=== PATIENT | female | born 1955 | race Caucasian/White ===

== ENCOUNTER 2021-10-02 11:57 | Observation (INO) ==
[2021-10-02 13:13] LABS: Hematocrit 16.9 % (35.3-44.9); Mean Corpuscular HGB Conc 30.2 g/dL (31.6-35.5); Nucleated Red Blood Cells 0.9 /100 WBC (0)
[2021-10-02 13:14] LABS: Mean Corpuscular Hemoglobin 25.2 pg (28.0-33.3); Mean Corpuscular Volume 83.7 fL (83.0-100.0); Mean Platelet Volume 10.4 fL (9.4-12.4); Platelet Count 449 K/mcL (140-400); Red Blood Count 2.02 M/mcL (3.82-4.97); Red Cell Distribution Width 21.8 % (11.5-14.5); White Blood Count 6.4 K/mcL (4.3-11.1)
[2021-10-02 13:20] LABS: INR 1.2; Prothrombin Time 13.8 Seconds (9.4-12.1)
[2021-10-02 13:32] LABS: Hemoglobin 5.1 g/dL (11.5-15.4)
[2021-10-02 13:39] LABS: BUN/Creatinine Ratio 15 (6-26); Blood Urea Nitrogen 15 mg/dL (8-23); Calcium 8.9 mg/dL (8.6-10.3); Carbon Dioxide 24 mEq/L (23-29); Chloride 105 mEq/L (98-107); Glucose 85 mg/dL (70-105); Osmolality,Calculated 282 (280-300); Potassium 3.8 mEq/L (3.5-5.1); Sodium 136 mEq/L (136-145); Troponin I 0.04 ng/mL (< 0.04); eGFR For African Americans > 60 (> 60); eGFR For Non-African Americans 54 (> 60)
[2021-10-02] MEDS ORDERED: 0.9 % Sodium Chloride 250 ML ONE ×3 (14:17→19:56)
[2021-10-02 14:31] LABS: Lymphocytes # 0.9 K/mcL (0.6-4.6); Monocytes # 0.6 K/mcL (0.0-1.3); Neutrophils # 4.5 K/mcL (1.6-8.9)
[2021-10-02] MEDS ORDERED: Melatonin 3 MG TABLET PO PRN (16:04)
[2021-10-02] MEDS ORDERED: Ondansetron ODT 4 MG TAB.RAPDIS SL PRN (16:04)
[2021-10-02 18:04] LABS: Hematocrit 19.5 % (35.3-44.9)
[2021-10-02 18:18] LABS: Hemoglobin 5.9 g/dL (11.5-15.4)
[2021-10-03 01:20] LABS: Basophils % 0.6 %; Hematocrit 23.5 % (35.3-44.9); Immature Granulocytes % 6.7 % (0-4); Lymphocytes # 0.9 K/mcL (0.6-4.6); Lymphocytes % 13.8 %; Mean Corpuscular HGB Conc 31.9 g/dL (31.6-35.5); Mean Corpuscular Volume 84.5 fL (83.0-100.0); Mean Platelet Volume 10.5 fL (9.4-12.4); Monocytes # 1.4 K/mcL (0.0-1.3); Monocytes % 20.3 %; Nucleated Red Blood Cells 0.9 /100 WBC (0); Platelet Count 433 K/mcL (140-400); Red Blood Count 2.78 M/mcL (3.82-4.97); Segmented Neutrophils % 58.6 %; White Blood Count 6.8 K/mcL (4.3-11.1)
[2021-10-03 01:23] LABS: Hemoglobin 7.5 g/dL (11.5-15.4)
[2021-10-03 01:39] LABS: Anisocytosis 1+ (Not Present); Platelet Estimate Increased (Normal)
[2021-10-03 04:48] VITALS: TEMP 98
[2021-10-03 07:17] VITALS: BP 130/38; PULSE 83
[2021-10-03] MEDS ORDERED: Aspirin Enteric Coated 81 MG Tablet PO SCH (09:00)
[2021-10-03 09:28] VITALS: O2SAT 100
== END 2021-10-03 11:33 | disposition home or self-care (01) ==
LOC: EMEROOARM 11:57 → 2NENU 11:57 → SUATTDRO 16:06 → 2NENU 17:12
PROVIDERS: ADMIT Internal Medicine; ATTEND Internal Medicine